=== PATIENT | male | born 1980 | race Caucasian/White ===

== ENCOUNTER 2018-03-20 11:39 | Outpatient (CLI) | payer BC ==
--- NOTE | 2018-03-20 15:31 | NM ---
HEPATOBILIARY SCAN: Date: 03/20/18 HISTORY: Right upper quadrant pain. No gallstones on ultrasound of 03/07/18. RADIOPHARMACEUTICAL: 4.7 mCi technetium-99m mebrofenin injected intravenously. FINDINGS: There is good tracer extraction by the liver with prompt excretion into the biliary tract and small b owel loops, and normal filling of the gallbladder. The calculated gallbladder ejection fraction following an oral fatty meal measures 52%. IMPRESSION: Normal exam. POS: [facility]
== END 2018-03-20 11:40 | disposition home or self-care (01) ==
LOC: NM 11:39
PROVIDERS: ATTEND Family Medicine
DX: R10.11 Right upper quadrant pain (principal)
CPT/HCPCS: 78227; A9537

== ENCOUNTER 2020-08-08 14:20 | Emergency (ER) | payer BC ==
[~2020-08-08 14:20] MED LIST: Iopamidol-370 76% 500 ML 1 ML ONE
[2020-08-08 15:19] LABS: #Eosinphils 0.2 thou/uL (0.0-0.7); #Lymphocytes 1.8 thou/uL (1.20-3.40); #Monocytes 0.5 thou/uL (0.11-0.59); #Neutrophils 2.6 thou/uL (1.40-6.50); %Basophils 0.8 % (0.0-1.0); %Eosinophils 3.9 % (0.0-10.0); %Lymphocytes 34.8 % (21.0-51.0); %Monocytes 9.6 % (0.0-10.0); Hemoglobin 15.3 g/dL (14.0-18.0); Mean Corpuscular HGB CONC 33.9 g/dL (32.0-36.0); Mean Corpuscular Hemoglobin 30.5 pg (27.0-31.0); Mean Platelet Volume 7.1 fL (7.4-10.4); Platelet Count 300 thou/uL (130-400); RBC Distribution Width 11.9 % (11.5-14.5); Red Blood Cell (RBC) Count 5.02 mill/uL (4.70-6.10); White Blood Cell (WBC) Count 5.2 thou/uL (4.8-10.8)
[2020-08-08 15:41] LABS: ALT (SGPT) 81 U/L (8-55); AST (SGOT) 58 U/L (5-34); Albumin 4.5 g/dL (3.5-5.0); Alkaline Phosphatase 89 U/L (40-110); Anion Gap 13 mmol/L (10-20); BUN (Urea Nitrogen) 10 mg/dL (8.9-20.6); Bilirubin, Total 1.2 mg/dL (0.2-1.2); Calc. Creatinine Clearance 0 mL/min (70-130); Calcium 9.2 mg/dL (7.8-10.44); Carbon Dioxide 23 mmol/L (22-29); Chloride 104 mmol/L (98-107); Globulin 3.1 g/dL (2.4-3.5); Glucose 90 mg/dL (70-105); Potassium 4.1 mmol/L (3.5-5.1); Protein, Total 7.6 g/dL (6.0-8.3); Sodium 136 mmol/L (136-145)
== END 2020-08-08 16:20 | disposition home or self-care (01) ==
LOC: ERS 14:20
DX: R07.81 Pleurodynia (principal); I10 Essential (primary) hypertension; D68.51 Activated protein C resistance; Z79.01 Long term (current) use of anticoagulants; Z79.899 Other long term (current) drug therapy
CPT/HCPCS: 71045; 71275; 80053; 84484; 85025; 85379; 93005; Q9967

== ENCOUNTER 2021-05-01 09:00 | Outpatient (CLI) | payer BC | END 2021-05-01 09:01 | disposition home or self-care (01) | LOC: SCSMRI 09:00 | PROVIDERS: ATTEND Family Medicine | DX: M47.22 Other spondylosis with radiculopathy, cervical region (principal); M48.02 Spinal stenosis, cervical region; M47.23 Other spondylosis with radiculopathy, cervicothoracic region | CPT/HCPCS: 72141 ==

== ENCOUNTER 2021-08-04 15:07 | Emergency (ER) | payer BC ==
[2021-08-04] MEDS ORDERED: Lorazepam 2 MG/ML VIAL ONE (17:18)
[2021-08-04] MEDS ORDERED: Fentanyl 100 MCG/2 ML VIAL ONE (17:18)
== END 2021-08-04 18:38 | disposition home or self-care (01) ==
LOC: ERS 15:07
DX: M54.12 Radiculopathy, cervical region (principal); I10 Essential (primary) hypertension; Z79.899 Other long term (current) drug therapy
CPT/HCPCS: 72141; 96372; J2060; J3010

== ENCOUNTER 2022-06-29 11:44 | Emergency (ER) | payer BC ==
[~2022-06-29 11:44] MED LIST changes: -Iopamidol-370 76% 500 ML 1 ML ONE; +Iopamidol-370 76% 500 ML MDV (1 ML CHARGE) ONE
[2022-06-29 12:50] LABS: #Eosinphils 0.2 thou/uL (0.0-0.7); #Monocytes 0.8 thou/uL (0.11-0.59); #Neutrophils 7.6 thou/uL (1.40-6.50); %Basophils 0.4 % (0.0-1.0); %Eosinophils 1.9 % (0.0-10.0); %Lymphocytes 18.8 % (21.0-51.0); %Monocytes 7.1 % (0.0-10.0); %Neutrophils 71.8 % (42.0-75.0); Hemoglobin 15.9 g/dL (14.0-18.0); Mean Corpuscular HGB CONC 35.5 g/dL (32.0-36.0); Mean Corpuscular Hemoglobin 31.3 pg (27.0-31.0); Mean Corpuscular Volume 88.1 fl (78.0-98.0); Mean Platelet Volume 7.8 fL (7.4-10.4); Platelet Count 279 10x3/uL (130-400); RBC Distribution Width 11.8 % (11.5-14.5); Red Blood Cell (RBC) Count 5.06 mill/uL (4.70-6.10); White Blood Cell (WBC) Count 10.6 10x3/uL (4.8-10.8)
[2022-06-29 12:52] LABS: ALT (SGPT) 25 U/L (8-55); AST (SGOT) 24 U/L (5-34); Albumin 4.4 g/dL (3.5-5.0); Alkaline Phosphatase 81 U/L (40-110); Anion Gap 16 mmol/L (10-20); BUN (Urea Nitrogen) 12 mg/dL (8.9-20.6); Bilirubin, Total 1.3 mg/dL (0.2-1.2); Calc. Creatinine Clearance 0 mL/min (70-130); Calcium 9.1 mg/dL (7.8-10.44); Carbon Dioxide 18 mmol/L (22-29); Chloride 107 mmol/L (98-107); Estimated GFR 79; Globulin 2.8 g/dL (2.4-3.5); Glucose 118 mg/dL (70-105); Potassium 3.8 mmol/L (3.5-5.1); Protein, Total 7.2 g/dL (6.0-8.3); Sodium 137 mmol/L (136-145)
== END 2022-06-29 15:00 | disposition home or self-care (01) ==
LOC: ERS 11:44
DX: T78.40XA Allergy, unspecified, initial encounter (principal)
CPT/HCPCS: 70450; 71045; 71260; 72125; 72170; 74177; 80053; 83735; 85025; Q9967

== ENCOUNTER 2022-07-28 16:35 | Inpatient (IN) | payer BC ==
[2022-07-28] MEDS ORDERED: Ondansetron PF 4 MG/2 ML Vial ONE (17:11)
[2022-07-28 17:18] LABS: Hemoglobin 14.1 g/dL (14.0-18.0); Mean Corpuscular HGB CONC 31.9 g/dL (32.0-36.0); Mean Corpuscular Hemoglobin 29.3 pg (27.0-31.0); Mean Corpuscular Volume 91.9 fl (78.0-98.0); Platelet Count 205 10x3/uL (130-400); RBC Distribution Width 13.3 % (11.5-14.5); Red Blood Cell (RBC) Count 4.81 mill/uL (4.70-6.10); White Blood Cell (WBC) Count 35.4 10x3/uL (4.8-10.8)
[2022-07-28 17:23] LABS: Delete Auto Diff?? YES; Manual Diff?? YES
[2022-07-28 17:33] LABS: ALT (SGPT) 21 U/L (8-55); AST (SGOT) 19 U/L (5-34); Albumin 3.8 g/dL (3.5-5.0); Alkaline Phosphatase 69 U/L (40-110); Anion Gap 17 mmol/L (10-20); BUN (Urea Nitrogen) 28 mg/dL (8.9-20.6); Bilirubin, Total 0.6 mg/dL (0.2-1.2); Calc. Creatinine Clearance 0 mL/min (70-130); Calcium 8.4 mg/dL (7.8-10.44); Carbon Dioxide 21 mmol/L (22-29); Chloride 107 mmol/L (98-107); Estimated GFR 45; Globulin 2.7 g/dL (2.4-3.5); Glucose 136 mg/dL (70-105); Magnesium 2.1 mg/dL (1.6-2.6); Protein, Total 6.5 g/dL (6.0-8.3); Sodium 141 mmol/L (136-145)
[2022-07-28 17:46] LABS: Band 6 % (5-11); Lymphocytes 7 % (21-51); Monocytes 4 % (0-10); Neutrophil 82 % (42-75); Platelet Adequacy Comment Platelets Normal; Reactive Lymphocytes 1 % (0-10)
[2022-07-28 17:57] LABS: Total Cell Count 100
[2022-07-28] MEDS ORDERED: fentaNYL 50 mcg/mL 1 mL Vial ONE (18:36)
[2022-07-28] MEDS ORDERED: Heparin 10,000 UNITS/ 10 ML VIAL ONE (19:07)
[2022-07-28] MEDS ORDERED: Heparin 25,000 units/D5W 500 ML ONE (19:07)
[2022-07-28 19:30] LABS: Prothrombin Time 23.3 sec (12.0-14.7)
[2022-07-28 19:37] LABS: PTT 42.2 sec (22.9-36.1)
[2022-07-28 19:52] LABS: Lactic Acid 2.1 mmol/L (0.5-2.2)
[2022-07-28] MEDS ORDERED: Ondansetron PF 4 MG/2 ML Vial IVP PRN (20:18)
[2022-07-28] MEDS ORDERED: Acetaminophen 325 MG TAB PO PRN (20:18)
[2022-07-28] MEDS ORDERED: Heparin 25,000 units/D5W 500 ML IVPB SCH (20:30)
[2022-07-28] MEDS ORDERED: Heparin 10,000 UNITS/ 10 ML VIAL SLOW IVP SCH (20:30)
[2022-07-28] MEDS ORDERED: HYDROcodone/Acetaminophen 5/325 mg Tablet PO PRN (20:36)
[2022-07-28] MEDS ORDERED: Dexamethasone 4 MG TAB PO SCH (21:00)
[2022-07-28] MEDS ORDERED: Cefepime 1 GM in Sodium Chloride 0.9% 100 ML IVPB SCH (22:00)
[2022-07-28] MEDS: Senokot S 8.6-50 MG TAB PO SCH (22:28)
[2022-07-28] MEDS: Gabapentin 300 MG CAP PO SCH (22:29)
[2022-07-28] MEDS: Sodium Chloride 0.9% 1,000 ML IV SCH (22:29)
[2022-07-28] MEDS ORDERED: Ipratropium/Albuterol 3 ML NEB NEB PRN (22:33)
[2022-07-28 22:42] VITALS: BMI 25.2
[2022-07-28 23:03] LABS: Bacteria/HPF None Seen HPF (None Seen); Bilirubin Negative (Negative); Blood, Urine Trace (Negative); CAUTI Indications for Culture Dysuria,urgency,freq; Clarity Clear (Clear); Glucose, Urine (Dipstick) Normal (Negative); Ketone, Urine Negative (Negative); Leukocyte Negative Leu/uL (Negative); Nitrite Negative (Negative); Protein, Urine (Dipstick) 70 mg/dL (Neg-Trace); RBC/HPF 0-3 HPF (0-3); Specific Gravity, Urine 1.035 (1.002-1.036); Squamous Epithelial None Seen HPF (0-3); Urobilinogen Normal mg/dL (Less than 2); WBC/HPF 0-3 HPF (0-3); pH, Urine 6.5 (5.0-9.0)
[2022-07-28 23:08] LABS: Urine Culture Reflex No No
[2022-07-28] MEDS ORDERED: VANCOMYCIN 1.75 GM/500 ML BAG 1.75 GM in Premix Bag 1 BAG IVPB SCH (23:59)
[2022-07-29 01:59] LABS: PTT Greater than 250.0 sec (22.9-36.1)
[2022-07-29 05:48] LABS: #Basophils 0.1 thou/uL (0.0-0.2); #Monocytes 1.3 thou/uL (0.11-0.59); %Basophils 0.5 % (0.0-1.0); %Lymphocytes 6.1 % (21.0-51.0); %Monocytes 6.3 % (0.0-10.0); %Neutrophils 82.9 % (42.0-75.0); Hemoglobin 12.9 g/dL (14.0-18.0); Mean Corpuscular HGB CONC 32.3 g/dL (32.0-36.0); Mean Corpuscular Hemoglobin 28.8 pg (27.0-31.0); Mean Corpuscular Volume 89.3 fl (78.0-98.0); Mean Platelet Volume 9.5 fL (7.4-10.4); Platelet Count 194 10x3/uL (130-400); RBC Distribution Width 13.2 % (11.5-14.5); Red Blood Cell (RBC) Count 4.48 mill/uL (4.70-6.10); White Blood Cell (WBC) Count 20.5 10x3/uL (4.8-10.8)
[2022-07-29 06:07] LABS: Anion Gap 13 mmol/L (10-20); BUN (Urea Nitrogen) 22 mg/dL (8.9-20.6); Calc. Creatinine Clearance 121 mL/min (70-130); Calcium 8.2 mg/dL (7.8-10.44); Carbon Dioxide 22 mmol/L (22-29); Chloride 107 mmol/L (98-107); Estimated GFR 103; Glucose 115 mg/dL (70-105); Potassium 4.3 mmol/L (3.5-5.1); Sodium 138 mmol/L (136-145)
[2022-07-29] MEDS ORDERED: Morphine 2 MG/ML VIAL SLOW IVP SCH (07:30)
[2022-07-29] MEDS: Dexamethasone 4 MG TAB PO SCH ×4 (07:34→20:28)
[2022-07-29] MEDS: Senokot S 8.6-50 MG TAB PO SCH ×2 (07:35→20:26)
[2022-07-29] MEDS: Gabapentin 300 MG CAP PO SCH ×3 (07:35→20:26)
[2022-07-29] MEDS ORDERED: Dexamethasone 10 MG/ML VIAL SLOW IVP SCH (08:15)
[2022-07-29] MEDS ORDERED: Gabapentin 300 MG CAP PO SCH ×2 (09:00→15:00)
[2022-07-29] MEDS: Cefepime 2 GM in Sodium Chloride 0.9% 100 ML IVPB SCH ×2 (09:02→22:20)
[2022-07-29] MEDS ORDERED: HYDROmorphone 0.5 MG/0.5 ML SYRINGE SLOW IVP SCH (10:45)
[2022-07-29] MEDS ORDERED: oxyCODONE 5 MG TAB PO PRN (10:45)
[2022-07-29] MEDS: Sodium Chloride 0.9% 1,000 ML IV SCH (10:58)
[2022-07-29] MEDS: Acetaminophen 500 MG TAB PO SCH ×2 (12:27→17:02)
[2022-07-29] MEDS: oxyCODONE 5 MG TAB PO PRN ×2 (12:28→17:05)
[2022-07-29] MEDS: fentaNYL 50 mcg/mL 1 mL Vial SLOW IVP PRN ×4 (13:27→22:20)
[2022-07-29 14:04] LABS: Vancomycin, Random 7.6 ug/mL (See Comment)
[2022-07-29] MEDS ORDERED: VANCOMYCIN 1.25 GM/250 ML BAG 1.25 GM in Premix Bag 1 BAG IVPB SCH ×2 (15:00→23:59)
[2022-07-29] MEDS: Diazepam 5 MG TAB PO PRN (15:34)
[2022-07-29 17:23] LABS: PTT Greater than 250.0 sec (22.9-36.1)
[2022-07-29 20:16] LABS: PTT 127.8 sec (22.9-36.1)
[2022-07-29] MEDS: traMADol HCl 50 MG TAB PO PRN (20:29)
[2022-07-30] MEDS: Acetaminophen 500 MG TAB PO SCH ×5 (00:24→23:01)
[2022-07-30] MEDS: Sodium Chloride 0.9% 1,000 ML IV SCH ×2 (00:24→16:57)
[2022-07-30] MEDS: VANCOMYCIN 1.25 GM/250 ML BAG 1.25 GM in Premix Bag 1 BAG IVPB SCH ×2 (02:40→16:53)
[2022-07-30] MEDS: traMADol HCl 50 MG TAB PO PRN (02:48)
[2022-07-30 03:17] LABS: #Monocytes 1.5 thou/uL (0.11-0.59); #Neutrophils 14.5 thou/uL (1.40-6.50); %Basophils 0.2 % (0.0-1.0); %Lymphocytes 5.9 % (21.0-51.0); %Monocytes 8.7 % (0.0-10.0); Hemoglobin 12.1 g/dL (14.0-18.0); Mean Corpuscular HGB CONC 33.9 g/dL (32.0-36.0); Mean Corpuscular Volume 88.4 fl (78.0-98.0); Mean Platelet Volume 9.7 fL (7.4-10.4); Platelet Count 187 10x3/uL (130-400); RBC Distribution Width 12.8 % (11.5-14.5); Red Blood Cell (RBC) Count 4.04 mill/uL (4.70-6.10); White Blood Cell (WBC) Count 17.4 10x3/uL (4.8-10.8)
[2022-07-30 03:50] LABS: Anion Gap 12 mmol/L (10-20); BUN (Urea Nitrogen) 18 mg/dL (8.9-20.6); Calc. Creatinine Clearance 142 mL/min (70-130); Calcium 8.5 mg/dL (7.8-10.44); Carbon Dioxide 26 mmol/L (22-29); Chloride 105 mmol/L (98-107); Estimated GFR 113; Glucose 153 mg/dL (70-105); Potassium 4.5 mmol/L (3.5-5.1); Sodium 138 mmol/L (136-145)
[2022-07-30 03:54] LABS: PTT Greater than 250.0 sec (22.9-36.1)
[2022-07-30 06:39] LABS: PTT 125.4 sec (22.9-36.1)
[2022-07-30] MEDS: fentaNYL 50 mcg/mL 1 mL Vial SLOW IVP PRN ×2 (07:30→09:05)
[2022-07-30] MEDS ORDERED: Dexamethasone 4 MG TAB PO SCH (07:45)
[2022-07-30] MEDS: Gabapentin 300 MG CAP PO SCH ×3 (10:35→20:12)
[2022-07-30] MEDS: Senokot S 8.6-50 MG TAB PO SCH ×2 (10:39→20:18)
[2022-07-30] MEDS ORDERED: Thrombin 5000 UNITS/5 ML VIAL ONE (11:07)
[2022-07-30] MEDS ORDERED: Vancomycin 1 GM VIAL ONE (11:07)
[2022-07-30] MEDS ORDERED: Fentanyl 250 MCG/5 ML VIAL ONE (11:13)
[2022-07-30] MEDS ORDERED: Famotidine/PF 20 mg/2ml Vial ONE (11:13)
[2022-07-30] MEDS ORDERED: SUGAMMADEX SODIUM 200 MG/2 ML VIAL ONE (11:13)
[2022-07-30] MEDS ORDERED: fentaNYL 50 mcg/mL 1 mL Vial ONE ×4 (11:21→14:20)
[2022-07-30] MEDS ORDERED: Rocuronium Bromide 10 MG/ML (10ML VIAL) ONE (11:39)
[2022-07-30] MEDS ORDERED: Lidocaine 1% PF 5 ML VIAL ONE (11:39)
[2022-07-30] MEDS ORDERED: Ondansetron PF 4 MG/2 ML Vial ONE (11:39)
[2022-07-30] MEDS ORDERED: Metoprolol Tartrate 5 MG/5 ML VIAL ONE (11:39)
[2022-07-30] MEDS ORDERED: PROPOFOL 200 MG/20 ML VIAL ONE (11:39)
[2022-07-30] MEDS ORDERED: Meperidine HCl/PF 25 MG/ML VIAL SLOW IVP PRN (12:06)
[2022-07-30] MEDS ORDERED: Ondansetron HCl/PF 4 MG/2 ML Vial IVP PRN (12:06)
[2022-07-30] MEDS ORDERED: Promethazine HCl 25 MG/ML VIAL IM PRN (12:06)
[2022-07-30] MEDS ORDERED: Meperidine HCl/PF 25 MG/ML VIAL ONE (13:25)
[2022-07-30] MEDS ORDERED: Acetaminophen 325 MG TAB PO PRN (13:26)
[2022-07-30] MEDS ORDERED: hydrALAZINE 20 MG/ML VIAL SLOW IVP PRN (13:29)
[2022-07-30] MEDS ORDERED: niCARdipine 25 MG in Sodium Chloride 0.9% 250 ML 250 ML IVPB SCH (13:30)
[2022-07-30] MEDS ORDERED: hydrALAZINE 20 MG/ML VIAL ONE (13:56)
[2022-07-30] MEDS ORDERED: VANCOMYCIN 1.25 GM/250 ML BAG 1.25 GM in Premix Bag 1 BAG IVPB SCH (16:00)
[2022-07-30] MEDS: Dexamethasone 4 MG TAB PO SCH ×3 (16:51→23:02)
[2022-07-30] MEDS: Cefepime 2 GM in Sodium Chloride 0.9% 100 ML IVPB SCH ×2 (16:51→22:09)
[2022-07-30] MEDS: HYDROcodone/Acetaminophen 7.5/325 mg Tablet PO PRN (17:23)
[2022-07-30 18:34] LABS: Hemoglobin 10.1 g/dL (14.0-18.0); Platelet Count 193 10x3/uL (130-400)
[2022-07-31] MEDS: fentaNYL 50 mcg/mL 1 mL Vial SLOW IVP PRN ×4 (03:16→22:07)
[2022-07-31 03:24] LABS: #Monocytes 1.6 thou/uL (0.11-0.59); #Neutrophils 13.1 thou/uL (1.40-6.50); %Basophils 0.1 % (0.0-1.0); %Lymphocytes 4.9 % (21.0-51.0); %Monocytes 10.2 % (0.0-10.0); %Neutrophils 83.3 % (42.0-75.0); Hemoglobin 10.4 g/dL (14.0-18.0); Mean Corpuscular HGB CONC 33.8 g/dL (32.0-36.0); Mean Corpuscular Hemoglobin 29.9 pg (27.0-31.0); Mean Corpuscular Volume 88.5 fl (78.0-98.0); Mean Platelet Volume 9.4 fL (7.4-10.4); Platelet Count 212 10x3/uL (130-400); Red Blood Cell (RBC) Count 3.48 mill/uL (4.70-6.10); White Blood Cell (WBC) Count 15.7 10x3/uL (4.8-10.8)
[2022-07-31 03:45] LABS: Vancomycin, Trough 9.5 ug/mL
[2022-07-31] MEDS: Sodium Chloride 0.9% 1,000 ML IV SCH ×2 (03:53→10:41)
[2022-07-31] MEDS: VANCOMYCIN 1.25 GM/250 ML BAG 1.25 GM in Premix Bag 1 BAG IVPB SCH ×3 (03:56→20:35)
[2022-07-31 04:01] LABS: Anion Gap 12 mmol/L (10-20); BUN (Urea Nitrogen) 15 mg/dL (8.9-20.6); Calc. Creatinine Clearance 152 mL/min (70-130); Calcium 8.2 mg/dL (7.8-10.44); Carbon Dioxide 23 mmol/L (22-29); Chloride 106 mmol/L (98-107); Estimated GFR 114; Glucose 121 mg/dL (70-105); Potassium 4.3 mmol/L (3.5-5.1); Sodium 137 mmol/L (136-145)
[2022-07-31] MEDS: Dexamethasone 4 MG TAB PO SCH ×3 (05:42→17:38)
[2022-07-31] MEDS: Acetaminophen 500 MG TAB PO SCH ×3 (05:42→17:37)
[2022-07-31] MEDS: Cefepime 2 GM in Sodium Chloride 0.9% 100 ML IVPB SCH ×2 (09:26→22:07)
[2022-07-31] MEDS: Gabapentin 300 MG CAP PO SCH ×3 (09:27→20:36)
[2022-07-31] MEDS: Senokot S 8.6-50 MG TAB PO SCH ×2 (09:27→20:37)
[2022-08-01] MEDS: Acetaminophen 500 MG TAB PO SCH ×5 (00:51→23:05)
[2022-08-01] MEDS: Dexamethasone 4 MG TAB PO SCH ×5 (00:52→23:06)
[2022-08-01 03:20] LABS: Vancomycin, Trough 17.4 ug/mL
[2022-08-01] MEDS: Sodium Chloride 0.9% 1,000 ML IV SCH ×2 (04:10→17:05)
[2022-08-01] MEDS: VANCOMYCIN 1.25 GM/250 ML BAG 1.25 GM in Premix Bag 1 BAG IVPB SCH ×3 (04:11→19:58)
[2022-08-01] MEDS: Gabapentin 300 MG CAP PO SCH ×3 (08:53→19:56)
[2022-08-01] MEDS: Cefepime 2 GM in Sodium Chloride 0.9% 100 ML IVPB SCH ×2 (08:53→21:32)
[2022-08-01] MEDS: Senokot S 8.6-50 MG TAB PO SCH ×2 (08:54→19:57)
[2022-08-01] MEDS: fentaNYL 50 mcg/mL 1 mL Vial SLOW IVP PRN ×2 (10:02→14:56)
[2022-08-01] MEDS: Polyethylene Glycol 3350 17 GM Packet PO PRN (10:46)
[2022-08-01] MEDS: HYDROcodone/Acetaminophen 10/325 mg Tablet PO PRN (20:40)
[2022-08-02] MEDS: fentaNYL 50 mcg/mL 1 mL Vial SLOW IVP PRN ×2 (00:01→10:38)
[2022-08-02 03:29] LABS: Vancomycin, Trough 17.1 ug/mL
[2022-08-02] MEDS: VANCOMYCIN 1.25 GM/250 ML BAG 1.25 GM in Premix Bag 1 BAG IVPB SCH ×3 (04:07→20:14)
[2022-08-02] MEDS: Acetaminophen 500 MG TAB PO SCH ×3 (05:58→17:17)
[2022-08-02] MEDS: Dexamethasone 4 MG TAB PO SCH ×3 (05:58→17:17)
[2022-08-02] MEDS: traMADol HCl 50 MG TAB PO PRN (06:00)
[2022-08-02] MEDS: tiZANidine HCl 4 MG TAB PO PRN (06:00)
[2022-08-02] MEDS ORDERED: Apixaban 5 MG TAB PO SCH (09:00)
[2022-08-02] MEDS: Gabapentin 300 MG CAP PO SCH ×3 (09:08→20:15)
[2022-08-02] MEDS: Cefepime 2 GM in Sodium Chloride 0.9% 100 ML IVPB SCH ×2 (09:08→21:02)
[2022-08-02 09:09] LABS: #Monocytes 1.5 thou/uL (0.11-0.59); #Neutrophils 12.7 thou/uL (1.40-6.50); %Basophils 0.1 % (0.0-1.0); %Lymphocytes 8.7 % (21.0-51.0); %Monocytes 9.2 % (0.0-10.0); %Neutrophils 78.7 % (42.0-75.0); Hemoglobin 10.1 g/dL (14.0-18.0); Mean Corpuscular HGB CONC 33.2 g/dL (32.0-36.0); Mean Corpuscular Hemoglobin 29.5 pg (27.0-31.0); Mean Corpuscular Volume 88.9 fl (78.0-98.0); Mean Platelet Volume 9.6 fL (7.4-10.4); Platelet Count 315 10x3/uL (130-400); RBC Distribution Width 12.8 % (11.5-14.5); Red Blood Cell (RBC) Count 3.42 mill/uL (4.70-6.10); White Blood Cell (WBC) Count 16.1 10x3/uL (4.8-10.8)
[2022-08-02] MEDS: Senokot S 8.6-50 MG TAB PO SCH ×2 (09:09→20:16)
[2022-08-02] MEDS: Sodium Chloride 0.9% 1,000 ML IV SCH (09:10)
[2022-08-02 09:32] LABS: Anion Gap 12 mmol/L (10-20); BUN (Urea Nitrogen) 17 mg/dL (8.9-20.6); Calc. Creatinine Clearance 153 mL/min (70-130); Calcium 8.3 mg/dL (7.8-10.44); Carbon Dioxide 25 mmol/L (22-29); Chloride 103 mmol/L (98-107); Estimated GFR 115; Glucose 146 mg/dL (70-105); Potassium 4.4 mmol/L (3.5-5.1); Sodium 136 mmol/L (136-145)
[2022-08-02] MEDS: Apixaban 5 MG TAB PO SCH ×2 (10:04→20:15)
[2022-08-02] MEDS: HYDROcodone/Acetaminophen 7.5/325 mg Tablet PO PRN (20:15)
[2022-08-02] MEDS: Diazepam 5 MG TAB PO PRN (20:16)
[2022-08-03] MEDS: Acetaminophen 500 MG TAB PO SCH ×2 (00:05→06:03)
[2022-08-03] MEDS: Dexamethasone 4 MG TAB PO SCH ×2 (00:05→06:03)
[2022-08-03] MEDS: oxyCODONE 5 MG TAB PO PRN (00:08)
[2022-08-03 04:53] LABS: Hemoglobin 10.5 g/dL (14.0-18.0); Mean Corpuscular HGB CONC 34.7 g/dL (32.0-36.0); Mean Corpuscular Hemoglobin 30.7 pg (27.0-31.0); Mean Corpuscular Volume 88.6 fl (78.0-98.0); Mean Platelet Volume 9.8 fL (7.4-10.4); Platelet Count 366 10x3/uL (130-400); RBC Distribution Width 13.1 % (11.5-14.5); Red Blood Cell (RBC) Count 3.42 mill/uL (4.70-6.10); White Blood Cell (WBC) Count 22.2 10x3/uL (4.8-10.8)
[2022-08-03 05:12] LABS: Vancomycin, Trough 13.2 ug/mL
[2022-08-03 05:15] LABS: Anion Gap 11 mmol/L (10-20); BUN (Urea Nitrogen) 18 mg/dL (8.9-20.6); Calc. Creatinine Clearance 159 mL/min (70-130); Calcium 8.8 mg/dL (7.8-10.44); Carbon Dioxide 25 mmol/L (22-29); Chloride 102 mmol/L (98-107); Estimated GFR 117; Glucose 137 mg/dL (70-105); Potassium 4.3 mmol/L (3.5-5.1); Sodium 134 mmol/L (136-145)
[2022-08-03 05:32] LABS: Delete Auto Diff?? YES; Manual Diff?? YES
[2022-08-03] MEDS: VANCOMYCIN 1.25 GM/250 ML BAG 1.25 GM in Premix Bag 1 BAG IVPB SCH (06:02)
[2022-08-03 06:09] LABS: Band 5 % (5-11); CellaVision Operator ID LAB.JMM; Lymphocytes 9 % (21-51); Monocytes 5 % (0-10); Neutrophil 80 % (42-75); Platelet Adequacy Comment Platelets Normal; Polychromasia SLIGHT = 2-3 cells HPF (0-2); Total Cell Count 101
[2022-08-03] MEDS ORDERED: Acetaminophen 325 MG TAB PO PRN (06:36)
[2022-08-03] MEDS: Senokot S 8.6-50 MG TAB PO SCH ×2 (08:18→21:16)
[2022-08-03] MEDS: Apixaban 5 MG TAB PO SCH ×2 (08:18→21:19)
[2022-08-03] MEDS: Gabapentin 300 MG CAP PO SCH ×3 (08:19→21:18)
[2022-08-03] MEDS: Cefepime 2 GM in Sodium Chloride 0.9% 100 ML IVPB SCH ×2 (10:52→21:15)
[2022-08-03] MEDS: HYDROcodone/Acetaminophen 10/325 mg Tablet PO PRN ×2 (11:00→21:44)
[2022-08-03] MEDS: Dexamethasone 1 MG TAB PO SCH ×2 (12:17→18:16)
[2022-08-03] MEDS: tiZANidine HCl 4 MG TAB PO PRN (15:22)
[2022-08-03] MEDS: VANCOMYCIN 1.75 GM/500 ML BAG 1.75 GM in Premix Bag 1 BAG IVPB SCH (18:15)
[2022-08-04] MEDS: Dexamethasone 1 MG TAB PO SCH ×5 (00:52→23:10)
[2022-08-04 05:37] LABS: Hemoglobin 10.8 g/dL (14.0-18.0); Mean Corpuscular HGB CONC 34.8 g/dL (32.0-36.0); Mean Corpuscular Hemoglobin 30.7 pg (27.0-31.0); Mean Corpuscular Volume 88.1 fl (78.0-98.0); Mean Platelet Volume 9.4 fL (7.4-10.4); Platelet Count 424 10x3/uL (130-400); RBC Distribution Width 13.4 % (11.5-14.5); Red Blood Cell (RBC) Count 3.52 mill/uL (4.70-6.10); White Blood Cell (WBC) Count 25.9 10x3/uL (4.8-10.8)
[2022-08-04 05:41] LABS: Delete Auto Diff?? YES; Manual Diff?? YES
[2022-08-04] MEDS: VANCOMYCIN 1.75 GM/500 ML BAG 1.75 GM in Premix Bag 1 BAG IVPB SCH ×2 (05:45→18:53)
[2022-08-04 05:58] LABS: Anion Gap 13 mmol/L (10-20); BUN (Urea Nitrogen) 20 mg/dL (8.9-20.6); Calc. Creatinine Clearance 146 mL/min (70-130); Calcium 8.8 mg/dL (7.8-10.44); Carbon Dioxide 24 mmol/L (22-29); Chloride 103 mmol/L (98-107); Estimated GFR 114; Glucose 121 mg/dL (70-105); Potassium 4.6 mmol/L (3.5-5.1); Sodium 135 mmol/L (136-145)
[2022-08-04 06:22] LABS: Band 4 % (5-11); CellaVision Operator ID lab.abc; Lymphocytes 7 % (21-51); Metamyelocyte 2 % (0-0); Monocytes 4 % (0-10); Myelocyte 3 % (0-0); Neutrophil 80 % (42-75); Platelet Adequacy Comment Platelets Normal; Polychromasia SLIGHT = 2-3 cells HPF (0-2); Total Cell Count 101
[2022-08-04] MEDS: Polyethylene Glycol 3350 17 GM Packet PO PRN (10:09)
[2022-08-04] MEDS: HYDROcodone/Acetaminophen 10/325 mg Tablet PO PRN (10:10)
[2022-08-04] MEDS: Cefepime 2 GM in Sodium Chloride 0.9% 100 ML IVPB SCH ×2 (10:10→21:47)
[2022-08-04] MEDS: Gabapentin 300 MG CAP PO SCH ×3 (10:11→21:46)
[2022-08-04] MEDS: Apixaban 5 MG TAB PO SCH ×2 (10:11→21:46)
[2022-08-04] MEDS: Senokot S 8.6-50 MG TAB PO SCH ×2 (10:12→21:46)
[2022-08-04 18:07] LABS: Vancomycin, Trough 11.1 ug/mL
[2022-08-04] MEDS: pyridOXINE 50 MG (B6) TAB PO SCH (21:46)
[2022-08-04] MEDS: Diazepam 5 MG TAB PO PRN (22:08)
[2022-08-05] MEDS: HYDROcodone/Acetaminophen 10/325 mg Tablet PO PRN (03:57)
[2022-08-05 06:36] LABS: Hemoglobin 10.3 g/dL (14.0-18.0); Mean Corpuscular HGB CONC 33.4 g/dL (32.0-36.0); Mean Corpuscular Hemoglobin 30.2 pg (27.0-31.0); Mean Corpuscular Volume 90.3 fl (78.0-98.0); Mean Platelet Volume 9.1 fL (7.4-10.4); Platelet Count 463 10x3/uL (130-400); RBC Distribution Width 14.3 % (11.5-14.5); Red Blood Cell (RBC) Count 3.41 mill/uL (4.70-6.10); White Blood Cell (WBC) Count 27.3 10x3/uL (4.8-10.8)
[2022-08-05 06:58] LABS: Anion Gap 13 mmol/L (10-20); BUN (Urea Nitrogen) 20 mg/dL (8.9-20.6); Calc. Creatinine Clearance 140 mL/min (70-130); Calcium 8.7 mg/dL (7.8-10.44); Carbon Dioxide 23 mmol/L (22-29); Chloride 101 mmol/L (98-107); Estimated GFR 113; Glucose 150 mg/dL (70-105); Potassium 4.4 mmol/L (3.5-5.1); Sodium 133 mmol/L (136-145)
[2022-08-05 07:03] LABS: Delete Auto Diff?? YES
[2022-08-05 07:04] LABS: Manual Diff?? YES
[2022-08-05] MEDS: VANCOMYCIN 1.75 GM/500 ML BAG 1.75 GM in Premix Bag 1 BAG IVPB SCH (07:17)
[2022-08-05] MEDS: Dexamethasone 1 MG TAB PO SCH ×3 (07:17→18:20)
[2022-08-05 08:54] LABS: Anisocytosis SLIGHT = 6-15 cells HPF (0-5); Band 2 % (5-11); CellaVision Operator ID LAB.CMB; Eosinophils 1 % (0-10); Lymphocytes 3 % (21-51); Macrocytosis SLIGHT = 6-15 cells HPF (0-5); Metamyelocyte 3 % (0-0); Monocytes 5 % (0-10); Myelocyte 1 % (0-0); Neutrophil 85 % (42-75); Nucleated RBC (Manual Ct) 1 % (0); Platelet Adequacy Comment Platelets Increased; Polychromasia SLIGHT = 2-3 cells HPF (0-2); Total Cell Count 100
[2022-08-05] MEDS: Gabapentin 300 MG CAP PO SCH ×3 (10:28→21:40)
[2022-08-05] MEDS: Senokot S 8.6-50 MG TAB PO SCH ×2 (10:29→21:40)
[2022-08-05] MEDS: Apixaban 5 MG TAB PO SCH ×2 (10:29→21:40)
[2022-08-05] MEDS: pyridOXINE 50 MG (B6) TAB PO SCH ×2 (10:29→21:39)
[2022-08-05] MEDS: Acetaminophen 325 MG TAB PO PRN (10:59)
[2022-08-05] MEDS: Bisacodyl 10 MG SUPP PR PRN (11:00)
[2022-08-05] MEDS: Polyethylene Glycol 3350 17 GM Packet PO PRN (11:00)
[2022-08-05] MEDS: Diazepam 5 MG TAB PO PRN (21:39)
[2022-08-06] MEDS: Dexamethasone 1 MG TAB PO SCH ×5 (00:20→23:54)
[2022-08-06] MEDS: HYDROcodone/Acetaminophen 10/325 mg Tablet PO PRN (05:45)
[2022-08-06] MEDS: Gabapentin 300 MG CAP PO SCH ×3 (10:22→20:46)
[2022-08-06] MEDS: Polyethylene Glycol 3350 17 GM Packet PO PRN (10:24)
[2022-08-06] MEDS: Senokot S 8.6-50 MG TAB PO SCH ×2 (10:24→20:46)
[2022-08-06] MEDS: Apixaban 5 MG TAB PO SCH ×2 (10:24→20:46)
[2022-08-06] MEDS: pyridOXINE 50 MG (B6) TAB PO SCH ×2 (10:24→20:47)
[2022-08-06 11:12] LABS: #Basophils 0.1 thou/uL (0.0-0.2); #Monocytes 2.1 thou/uL (0.11-0.59); #Neutrophils 20.4 thou/uL (1.40-6.50); %Basophils 0.4 % (0.0-1.0); %Lymphocytes 5.4 % (21.0-51.0); %Monocytes 8.5 % (0.0-10.0); %Neutrophils 81.5 % (42.0-75.0); Hemoglobin 11.3 g/dL (14.0-18.0); Mean Corpuscular HGB CONC 33.9 g/dL (32.0-36.0); Mean Corpuscular Volume 91.2 fl (78.0-98.0); Mean Platelet Volume 9.2 fL (7.4-10.4); Platelet Count 479 10x3/uL (130-400); RBC Distribution Width 14.6 % (11.5-14.5); Red Blood Cell (RBC) Count 3.65 mill/uL (4.70-6.10)
[2022-08-06 11:39] LABS: ALT (SGPT) 58 U/L (8-55); AST (SGOT) 17 U/L (5-34); Albumin 3.9 g/dL (3.5-5.0); Alkaline Phosphatase 93 U/L (40-110); Anion Gap 17 mmol/L (10-20); BUN (Urea Nitrogen) 24 mg/dL (8.9-20.6); Bilirubin, Total 0.8 mg/dL (0.2-1.2); Calc. Creatinine Clearance 133 mL/min (70-130); Calcium 8.9 mg/dL (7.8-10.44); Carbon Dioxide 23 mmol/L (22-29); Chloride 96 mmol/L (98-107); Estimated GFR 112; Globulin 2.8 g/dL (2.4-3.5); Glucose 166 mg/dL (70-105); Potassium 4.5 mmol/L (3.5-5.1); Protein, Total 6.7 g/dL (6.0-8.3); Sodium 131 mmol/L (136-145)
[2022-08-06] MEDS: HYDROcodone/Acetaminophen 7.5/325 mg Tablet PO PRN (13:17)
[2022-08-07] MEDS: Dexamethasone 1 MG TAB PO SCH ×4 (05:16→23:12)
[2022-08-07] MEDS: Acetaminophen 325 MG TAB PO PRN (05:16)
[2022-08-07] MEDS ORDERED: Sodium Chloride 0.9% 1,000 ML IV SCH (08:30)
[2022-08-07] MEDS: Senokot S 8.6-50 MG TAB PO SCH ×2 (09:39→20:41)
[2022-08-07] MEDS: Apixaban 5 MG TAB PO SCH ×2 (09:39→20:41)
[2022-08-07] MEDS: pyridOXINE 50 MG (B6) TAB PO SCH ×2 (09:39→20:41)
[2022-08-07] MEDS: Gabapentin 300 MG CAP PO SCH ×3 (09:39→20:41)
[2022-08-07] MEDS: Polyethylene Glycol 3350 17 GM Packet PO PRN (09:40)
[2022-08-07] MEDS: HYDROcodone/Acetaminophen 7.5/325 mg Tablet PO PRN (11:20)
[2022-08-08] MEDS: Dexamethasone 1 MG TAB PO SCH ×3 (05:51→17:27)
[2022-08-08 07:17] LABS: #Eosinphils 0.1 thou/uL (0.0-0.7); #Monocytes 1.6 thou/uL (0.11-0.59); %Basophils 0.2 % (0.0-1.0); %Eosinophils 0.4 % (0.0-10.0); %Lymphocytes 8.8 % (21.0-51.0); %Monocytes 11.2 % (0.0-10.0); %Neutrophils 76.7 % (42.0-75.0); Mean Corpuscular Hemoglobin 30.8 pg (27.0-31.0); Mean Corpuscular Volume 93.3 fl (78.0-98.0); Mean Platelet Volume 8.9 fL (7.4-10.4); Platelet Count 457 10x3/uL (130-400); RBC Distribution Width 15.2 % (11.5-14.5); Red Blood Cell (RBC) Count 3.57 mill/uL (4.70-6.10); White Blood Cell (WBC) Count 14.3 10x3/uL (4.8-10.8)
[2022-08-08 07:41] LABS: Anion Gap 14 mmol/L (10-20); BUN (Urea Nitrogen) 19 mg/dL (8.9-20.6); Calc. Creatinine Clearance 154 mL/min (70-130); Calcium 8.9 mg/dL (7.8-10.44); Carbon Dioxide 23 mmol/L (22-29); Chloride 99 mmol/L (98-107); Estimated GFR 117; Glucose 113 mg/dL (70-105); Potassium 4.4 mmol/L (3.5-5.1); Sodium 132 mmol/L (136-145)
[2022-08-08] MEDS ORDERED: Lisinopril 10 MG TAB PO SCH (09:00)
[2022-08-08] MEDS ORDERED: Polyethylene Glycol 3350 17 GM Packet PO SCH (09:00)
[2022-08-08] MEDS: Senokot S 8.6-50 MG TAB PO SCH (09:52)
[2022-08-08] MEDS: Gabapentin 300 MG CAP PO SCH ×2 (09:52→15:12)
[2022-08-08] MEDS: pyridOXINE 50 MG (B6) TAB PO SCH (09:52)
[2022-08-08] MEDS: Apixaban 5 MG TAB PO SCH (09:52)
[2022-08-08] MEDS: Bisacodyl 10 MG SUPP PR PRN (10:50)
[2022-08-08 13:08] VITALS: TEMP 98.2
[2022-08-08 18:14] VITALS: BP 126/80
== END 2022-08-08 19:10 | DRG 981 ==
LOC: ERS 16:35 → IMCU/EMU 19:09 → CCU 07-30 13:35 → SURG B 08-03 01:16
PROVIDERS: ADMIT Internal Medicine; ATTEND Internal Medicine
PROC: 00CU0ZZ Extirpation of Matter from Spinal Canal, Open Approach (ICD-10-PCS; principal; 2022-07-30)
PROC: 01NB0ZZ Release Lumbar Nerve, Open Approach (ICD-10-PCS; 2022-07-30)
DX: I26.99 Other pulmonary embolism without acute cor pulmonale (principal); G95.19 Other vascular myelopathies; J96.01 Acute respiratory failure with hypoxia; D68.51 Activated protein C resistance; G83.4 Cauda equina syndrome; N17.9 Acute kidney failure, unspecified; E87.20 Acidosis, unspecified; K56.7 Ileus, unspecified; G97.61 Postprocedural hematoma of a nervous system organ or structure following a nervous system procedure; Y83.8 Other surgical procedures as the cause of abnormal reaction of the patient, or of later complication, without mention of misadventure at the time of the procedure; D72.829 Elevated white blood cell count, unspecified; K59.00 Constipation, unspecified; I10 Essential (primary) hypertension; R33.9 Retention of urine, unspecified; T38.0X5A Adverse effect of glucocorticoids and synthetic analogues, initial encounter; Z86.718 Personal history of other venous thrombosis and embolism; Z86.711 Personal history of pulmonary embolism; Z79.01 Long term (current) use of anticoagulants; Z79.899 Other long term (current) drug therapy; Z98.890 Other specified postprocedural states
CPT/HCPCS: 36415; 36416; 70450; 71045; 71046; 71275; 72148; 74018; 74177; 80048; 80053; 80202; 81001; 83605; 83735; 83880; 83930; 83935; 84145; 84443; 84484; 85025; 85610; 85730; 86850; 86900; 86901; 87040; 93005; 93306; 93970; 96361; 96365; 96374; 96375; J0360; J0692; J1100; J1170; J1644; J1650; J2175; J2272; J2405; J2704; J3010; J3370; J3490; J7050; J8540; Q9967; S0028

== ENCOUNTER 2022-08-26 00:54 | Inpatient (IN) | payer BC ==
[2022-08-26 01:25] LABS: #Eosinphils 0.1 thou/uL (0.0-0.7); #Monocytes 1.2 thou/uL (0.11-0.59); #Neutrophils 7.2 thou/uL (1.40-6.50); %Basophils 0.3 % (0.0-1.0); %Eosinophils 0.5 % (0.0-10.0); %Lymphocytes 23.5 % (21.0-51.0); %Monocytes 10.9 % (0.0-10.0); %Neutrophils 63.3 % (42.0-75.0); Hemoglobin 11.6 g/dL (14.0-18.0); Mean Corpuscular Hemoglobin 31.1 pg (27.0-31.0); Mean Corpuscular Volume 94.1 fl (78.0-98.0); Mean Platelet Volume 8.7 fL (7.4-10.4); Platelet Count 358 10x3/uL (130-400); RBC Distribution Width 14.5 % (11.5-14.5); Red Blood Cell (RBC) Count 3.73 mill/uL (4.70-6.10); White Blood Cell (WBC) Count 11.4 10x3/uL (4.8-10.8)
[2022-08-26] MEDS ORDERED: Cefepime 2 GM VIAL ONE ×2 (01:44→08:48)
[2022-08-26 01:49] LABS: ALT (SGPT) 38 U/L (8-55); AST (SGOT) 28 U/L (5-34); Albumin 3.9 g/dL (3.5-5.0); Alkaline Phosphatase 102 U/L (40-110); Anion Gap 17 mmol/L (10-20); BUN (Urea Nitrogen) 18 mg/dL (8.9-20.6); Bilirubin, Total 1.1 mg/dL (0.2-1.2); Calc. Creatinine Clearance 0 mL/min (70-130); Calcium 8.8 mg/dL (7.8-10.44); Carbon Dioxide 19 mmol/L (22-29); Chloride 98 mmol/L (98-107); Estimated GFR 59; Globulin 2.6 g/dL (2.4-3.5); Glucose 124 mg/dL (70-105); INR-International Normal Ratio 1.3; Potassium 4.8 mmol/L (3.5-5.1); Protein, Total 6.5 g/dL (6.0-8.3); Prothrombin Time 17.2 sec (12.0-14.7); Sodium 129 mmol/L (136-145)
[2022-08-26 01:50] LABS: Bilirubin Negative (Negative); Blood, Urine 3+ (Negative); CAUTI Indications for Culture Fever or rigors; Clarity Extra Turbid (Clear); Glucose, Urine (Dipstick) Normal (Negative); Ketone, Urine Negative (Negative); Leukocyte 500 Leu/uL (Negative); Nitrite Negative (Negative); Protein, Urine (Dipstick) 200 mg/dL (Neg-Trace); RBC/HPF 21-50 HPF (0-3); Specific Gravity, Urine 1.013 (1.002-1.036); Squamous Epithelial 0-3 HPF (0-3); Urobilinogen 3 mg/dL (Less than 2); WBC/HPF Greater than 50 HPF (0-3); pH, Urine 6.5 (5.0-9.0)
[2022-08-26 01:50] LABS: PTT 39.3 sec (22.9-36.1)
[2022-08-26 01:57] LABS: Bacteria/HPF 1+ HPF (None Seen); Urine Culture Reflex Yes Yes
[2022-08-26] MEDS ORDERED: Vancomycin 1.5 GRAM/300 ML BAG 1.5 GM in Premix Bag 1 BAG IVPB SCH (02:15)
[2022-08-26 02:25] LABS: SARS-CoV-2 NAA Rapid Test Not Detected (NotDetected)
[2022-08-26] MEDS ORDERED: Ondansetron PF 4 MG/2 ML Vial IVP PRN (03:38)
[2022-08-26] MEDS ORDERED: Morphine 4 MG/ML VIAL ONE (03:46)
[2022-08-26] MEDS ORDERED: Acetaminophen 500 MG TAB PO SCH (04:00)
[2022-08-26] MEDS ORDERED: Acetaminophen 500 MG TAB ONE (04:50)
[2022-08-26] MEDS: Sodium Chloride 0.9% 1,000 ML IV SCH ×3 (05:02→19:50)
[2022-08-26 06:19] VITALS: BMI 25.9
[2022-08-26] MEDS ORDERED: Famotidine/PF 20 mg/2ml Vial ONE (08:48)
[2022-08-26] MEDS ORDERED: Famotidine/PF 20 mg/2ml Vial SLOW IVP SCH (09:00)
[2022-08-26] MEDS: Cefepime 2 GM in Sodium Chloride 0.9% 100 ML IVPB SCH ×2 (09:06→21:01)
[2022-08-26] MEDS ORDERED: Metoclopramide HCl 10 MG/2 ML VIAL IVP SCH (10:45)
[2022-08-26] MEDS: traMADol HCl 50 MG TAB PO PRN ×3 (10:56→22:48)
[2022-08-26] MEDS ORDERED: Ondansetron ODT 4 MG TAB PO PRN (12:18)
[2022-08-26] MEDS ORDERED: cloNIDine 0.1 MG TAB PO PRN (12:18)
[2022-08-26] MEDS ORDERED: Calcium Carbonate 500 MG ChewTAB PO PRN (12:18)
[2022-08-26] MEDS ORDERED: tiZANidine HCl 4 MG TAB PO PRN (12:18)
[2022-08-26] MEDS ORDERED: Ipratropium/Albuterol 3 ML NEB NEB PRN (12:18)
[2022-08-26] MEDS ORDERED: HYDROcodone/Acetaminophen 7.5/325 mg Tablet PO PRN (12:18)
[2022-08-26] MEDS ORDERED: Milk Of Magnesia 30 ML UDCUP PO PRN (13:56)
[2022-08-26] MEDS: Gabapentin 300 MG CAP PO SCH ×2 (14:17→21:01)
[2022-08-26] MEDS: Acetaminophen 325 MG TAB PO PRN ×2 (14:18→22:49)
[2022-08-26] MEDS: pyridOXINE 50 MG (B6) TAB PO SCH (21:02)
[2022-08-26] MEDS: Apixaban 5 MG TAB PO SCH (21:02)
[2022-08-27] MEDS ORDERED: Acetaminophen 325 MG TAB PO SCH (01:00)
[2022-08-27] MEDS: Sodium Chloride 0.9% 1,000 ML IV SCH ×2 (04:08→18:07)
[2022-08-27 06:26] LABS: #Eosinphils 0.2 thou/uL (0.0-0.7); #Monocytes 0.8 thou/uL (0.11-0.59); #Neutrophils 3.1 thou/uL (1.40-6.50); %Basophils 0.3 % (0.0-1.0); %Eosinophils 2.9 % (0.0-10.0); %Lymphocytes 28.1 % (21.0-51.0); %Monocytes 14.1 % (0.0-10.0); %Neutrophils 52.9 % (42.0-75.0); Hemoglobin 10.3 g/dL (14.0-18.0); Mean Corpuscular HGB CONC 31.6 g/dL (32.0-36.0); Mean Corpuscular Hemoglobin 30.1 pg (27.0-31.0); Mean Corpuscular Volume 95.3 fl (78.0-98.0); Mean Platelet Volume 8.6 fL (7.4-10.4); Platelet Count 325 10x3/uL (130-400); RBC Distribution Width 14.3 % (11.5-14.5); Red Blood Cell (RBC) Count 3.42 mill/uL (4.70-6.10); White Blood Cell (WBC) Count 5.9 10x3/uL (4.8-10.8)
[2022-08-27 06:52] LABS: Anion Gap 13 mmol/L (10-20); BUN (Urea Nitrogen) 9 mg/dL (8.9-20.6); Calc. Creatinine Clearance 131 mL/min (70-130); Calcium 8.9 mg/dL (7.8-10.44); Carbon Dioxide 25 mmol/L (22-29); Chloride 102 mmol/L (98-107); Estimated GFR 109; Glucose 97 mg/dL (70-105); Potassium 4.5 mmol/L (3.5-5.1); Sodium 135 mmol/L (136-145)
[2022-08-27] MEDS: Cefepime 2 GM in Sodium Chloride 0.9% 100 ML IVPB SCH ×2 (08:18→19:59)
[2022-08-27] MEDS: pyridOXINE 50 MG (B6) TAB PO SCH ×2 (08:19→20:00)
[2022-08-27] MEDS: traMADol HCl 50 MG TAB PO PRN ×2 (08:19→20:01)
[2022-08-27] MEDS: Apixaban 5 MG TAB PO SCH ×2 (08:20→19:59)
[2022-08-27] MEDS: Gabapentin 300 MG CAP PO SCH ×3 (08:20→19:59)
[2022-08-27] MEDS: Sodium Chloride 1 GM TAB PO SCH (08:20)
[2022-08-27] MEDS: Acetaminophen 325 MG TAB PO PRN ×2 (08:21→20:05)
[2022-08-27] MEDS ORDERED: HYDROcodone/Acetaminophen 7.5/325 mg Tablet PO PRN (08:45)
[2022-08-27] MEDS ORDERED: Lisinopril 10 MG TAB PO SCH (09:15)
[2022-08-27] MEDS ORDERED: Nitroglycerin 2% Ointment 1 INCH/1 GM Packet TOP SCH (19:15)
[2022-08-27] MEDS: Fioricet 325/50/40 mg Tablet PO PRN (20:01)
[2022-08-27 20:31] LABS: Troponin I Less than 0.010 ng/mL (< 0.028)
[2022-08-28] MEDS: Fioricet 325/50/40 mg Tablet PO PRN ×2 (05:35→21:00)
[2022-08-28] MEDS: Acetaminophen 325 MG TAB PO PRN ×2 (05:36→20:59)
[2022-08-28] MEDS: traMADol HCl 50 MG TAB PO PRN ×2 (05:37→19:16)
[2022-08-28 06:32] LABS: #Eosinphils 0.2 thou/uL (0.0-0.7); #Monocytes 0.7 thou/uL (0.11-0.59); #Neutrophils 1.9 thou/uL (1.40-6.50); %Basophils 0.7 % (0.0-1.0); %Eosinophils 4.5 % (0.0-10.0); %Lymphocytes 34.1 % (21.0-51.0); %Monocytes 15.3 % (0.0-10.0); %Neutrophils 42.2 % (42.0-75.0); Hemoglobin 11.6 g/dL (14.0-18.0); Mean Corpuscular HGB CONC 32.3 g/dL (32.0-36.0); Mean Corpuscular Hemoglobin 30.4 pg (27.0-31.0); Mean Corpuscular Volume 94.2 fl (78.0-98.0); Platelet Count 380 10x3/uL (130-400); RBC Distribution Width 14.2 % (11.5-14.5); Red Blood Cell (RBC) Count 3.81 mill/uL (4.70-6.10); White Blood Cell (WBC) Count 4.4 10x3/uL (4.8-10.8)
[2022-08-28 06:55] LABS: ALT (SGPT) 43 U/L (8-55); AST (SGOT) 38 U/L (5-34); Albumin 3.7 g/dL (3.5-5.0); Alkaline Phosphatase 97 U/L (40-110); Anion Gap 14 mmol/L (10-20); BUN (Urea Nitrogen) 8 mg/dL (8.9-20.6); Bilirubin, Total 0.5 mg/dL (0.2-1.2); Calc. Creatinine Clearance 144 mL/min (70-130); Calcium 9.8 mg/dL (7.8-10.44); Carbon Dioxide 26 mmol/L (22-29); Chloride 101 mmol/L (98-107); Estimated GFR 112; Globulin 3.2 g/dL (2.4-3.5); Glucose 98 mg/dL (70-105); Potassium 4.2 mmol/L (3.5-5.1); Protein, Total 6.9 g/dL (6.0-8.3); Sodium 137 mmol/L (136-145)
[2022-08-28] MEDS: Apixaban 5 MG TAB PO SCH ×2 (09:27→21:03)
[2022-08-28] MEDS: Gabapentin 300 MG CAP PO SCH ×3 (09:27→21:01)
[2022-08-28] MEDS: Cefepime 2 GM in Sodium Chloride 0.9% 100 ML IVPB SCH ×2 (09:27→21:02)
[2022-08-28] MEDS: Lisinopril 10 MG TAB PO SCH (09:28)
[2022-08-28] MEDS: Sodium Chloride 1 GM TAB PO SCH (09:28)
[2022-08-28] MEDS: pyridOXINE 50 MG (B6) TAB PO SCH ×2 (09:28→21:03)
[2022-08-29 07:30] LABS: #Eosinphils 0.2 thou/uL (0.0-0.7); #Monocytes 0.7 thou/uL (0.11-0.59); #Neutrophils 1.8 thou/uL (1.40-6.50); %Basophils 0.6 % (0.0-1.0); %Eosinophils 4.3 % (0.0-10.0); %Lymphocytes 39.7 % (21.0-51.0); %Monocytes 14.8 % (0.0-10.0); %Neutrophils 36.5 % (42.0-75.0); Hemoglobin 10.8 g/dL (14.0-18.0); Mean Corpuscular HGB CONC 31.6 g/dL (32.0-36.0); Mean Corpuscular Hemoglobin 29.8 pg (27.0-31.0); Mean Corpuscular Volume 94.2 fl (78.0-98.0); Platelet Count 453 10x3/uL (130-400); RBC Distribution Width 14.1 % (11.5-14.5); Red Blood Cell (RBC) Count 3.63 mill/uL (4.70-6.10); White Blood Cell (WBC) Count 4.9 10x3/uL (4.8-10.8)
[2022-08-29 08:11] LABS: ALT (SGPT) 34 U/L (8-55); AST (SGOT) 22 U/L (5-34); Albumin 3.7 g/dL (3.5-5.0); Alkaline Phosphatase 93 U/L (40-110); Anion Gap 14 mmol/L (10-20); BUN (Urea Nitrogen) 7 mg/dL (8.9-20.6); Bilirubin, Total 0.3 mg/dL (0.2-1.2); Calc. Creatinine Clearance 150 mL/min (70-130); Calcium 9.4 mg/dL (7.8-10.44); Carbon Dioxide 25 mmol/L (22-29); Chloride 103 mmol/L (98-107); Estimated GFR 113; Globulin 3.2 g/dL (2.4-3.5); Glucose 95 mg/dL (70-105); Magnesium 2.1 mg/dL (1.6-2.6); Protein, Total 6.9 g/dL (6.0-8.3); Sodium 138 mmol/L (136-145)
[2022-08-29] MEDS: Sodium Chloride 1 GM TAB PO SCH (09:26)
[2022-08-29] MEDS: Gabapentin 300 MG CAP PO SCH ×3 (09:26→21:20)
[2022-08-29] MEDS: pyridOXINE 50 MG (B6) TAB PO SCH ×2 (09:26→21:20)
[2022-08-29] MEDS: Apixaban 5 MG TAB PO SCH ×2 (09:26→21:20)
[2022-08-29] MEDS: Lisinopril 10 MG TAB PO SCH (09:26)
[2022-08-29] MEDS: traMADol HCl 50 MG TAB PO PRN (10:01)
[2022-08-29] MEDS: Cefepime 2 GM in Sodium Chloride 0.9% 100 ML IVPB SCH (10:01)
[2022-08-29] MEDS: Polyethylene Glycol 3350 17 GM Packet PO SCH (14:53)
[2022-08-29] MEDS ORDERED: cefTRIAXone\\ROCEPHIN 2 GM in Sodium Chloride 0.9% 100 ML IVPB SCH (21:00)
[2022-08-29] MEDS: Cyclobenzaprine 10 MG TAB PO PRN (21:36)
[2022-08-30] MEDS: Saccharomyces boulardii 250 MG CAP PO SCH (08:53)
[2022-08-30] MEDS: Gabapentin 300 MG CAP PO SCH ×3 (08:54→20:25)
[2022-08-30] MEDS: pyridOXINE 50 MG (B6) TAB PO SCH ×2 (08:55→20:26)
[2022-08-30] MEDS: Apixaban 5 MG TAB PO SCH ×2 (08:55→20:26)
[2022-08-30] MEDS: Sodium Chloride 1 GM TAB PO SCH (08:55)
[2022-08-30] MEDS: Lisinopril 10 MG TAB PO SCH (08:55)
[2022-08-30] MEDS: Cyclobenzaprine 10 MG TAB PO PRN (09:37)
[2022-08-30] MEDS: Polyethylene Glycol 3350 17 GM Packet PO SCH (16:10)
[2022-08-31] MEDS: diphenhydrAMINE 25 MG CAP PO PRN (01:33)
[2022-08-31 06:47] LABS: Anion Gap 15 mmol/L (10-20); BUN (Urea Nitrogen) 8 mg/dL (8.9-20.6); Calc. Creatinine Clearance 121 mL/min (70-130); Calcium 9.9 mg/dL (7.8-10.44); Carbon Dioxide 26 mmol/L (22-29); Chloride 104 mmol/L (98-107); Estimated GFR 99; Glucose 104 mg/dL (70-105); Potassium 4.2 mmol/L (3.5-5.1); Sodium 141 mmol/L (136-145)
[2022-08-31] MEDS: Apixaban 5 MG TAB PO SCH ×2 (08:57→21:09)
[2022-08-31] MEDS: Gabapentin 300 MG CAP PO SCH ×3 (08:57→21:08)
[2022-08-31] MEDS: Saccharomyces boulardii 250 MG CAP PO SCH (08:57)
[2022-08-31] MEDS: pyridOXINE 50 MG (B6) TAB PO SCH ×2 (08:57→21:08)
[2022-08-31] MEDS: Lisinopril 10 MG TAB PO SCH (08:57)
[2022-08-31] MEDS: Acetaminophen 325 MG TAB PO PRN (08:57)
[2022-08-31] MEDS: Polyethylene Glycol 3350 17 GM Packet PO SCH (09:03)
[2022-09-01] MEDS: diphenhydrAMINE 25 MG CAP PO PRN (00:35)
[2022-09-01] MEDS: Apixaban 5 MG TAB PO SCH ×2 (08:45→20:08)
[2022-09-01] MEDS: Gabapentin 300 MG CAP PO SCH ×3 (08:46→20:08)
[2022-09-01] MEDS: Lisinopril 10 MG TAB PO SCH (08:46)
[2022-09-01] MEDS: pyridOXINE 50 MG (B6) TAB PO SCH ×2 (08:46→20:08)
[2022-09-01] MEDS: Polyethylene Glycol 3350 17 GM Packet PO SCH (08:46)
[2022-09-01] MEDS: Saccharomyces boulardii 250 MG CAP PO SCH (08:46)
[2022-09-01 20:07] VITALS: BP 122/71; TEMP 97.8
[2022-09-01] MEDS: Acetaminophen 325 MG TAB PO PRN (20:18)
== END 2022-09-01 21:10 | DRG 699 ==
LOC: ERS 00:54 → ERHOLD 03:13 → T4-A 10:28
PROVIDERS: ADMIT Hospitalist; ATTEND Internal Medicine
DX: T83.511A Infection and inflammatory reaction due to indwelling urethral catheter, initial encounter (principal); D68.51 Activated protein C resistance; N17.9 Acute kidney failure, unspecified; E87.1 Hypo-osmolality and hyponatremia; K59.00 Constipation, unspecified; G89.29 Other chronic pain; M54.9 Dorsalgia, unspecified; Z86.711 Personal history of pulmonary embolism; Z86.718 Personal history of other venous thrombosis and embolism; Z98.890 Other specified postprocedural states; Z79.01 Long term (current) use of anticoagulants; Z79.899 Other long term (current) drug therapy; Z20.822 Contact with and (suspected) exposure to COVID-19; Y84.6 Urinary catheterization as the cause of abnormal reaction of the patient, or of later complication, without mention of misadventure at the time of the procedure
CPT/HCPCS: 36415; 51702; 70450; 71045; 80048; 80053; 81001; 83605; 83735; 83880; 84484; 85025; 85610; 85730; 87040; 87077; 87086; 87186; 93005; 93010; 96361; 96365; 96366; 96367; 96375; J0692; J0696; J2270; J2765; J3370; J3490; J7050; S0028

== ENCOUNTER 2023-01-13 13:27 | Outpatient (CLI) | payer BC | END 2023-01-13 13:28 | disposition home or self-care (01) | LOC: SCSMRI 13:27 | PROVIDERS: ATTEND Family Medicine | DX: M25.552 Pain in left hip (principal); S73.192A Other sprain of left hip, initial encounter ==

== ENCOUNTER 2024-01-06 12:22 | Outpatient (CLI) | payer BC | END 2024-01-06 12:23 | disposition home or self-care (01) | LOC: BICULT 12:22 | PROVIDERS: ATTEND Family Medicine | DX: I82.622 Acute embolism and thrombosis of deep veins of left upper extremity (principal) ==

== ENCOUNTER 2024-03-16 09:43 | Outpatient (CLI) | payer BC | END 2024-03-16 09:44 | disposition home or self-care (01) | LOC: ULT 09:43 | PROVIDERS: ATTEND Family Medicine | DX: R10.11 Right upper quadrant pain (principal); K76.0 Fatty (change of) liver, not elsewhere classified | CPT/HCPCS: 76700 ==